=== PATIENT | female | born 1975 | race Caucasian/White ===

== ENCOUNTER → 2019-04-06 | Outpatient (CLI) | payer OTHER ==
[~2019-04-06] MED LIST: CARB1TAB22 PO; DIPH25CA61 PO; GABA300C10 PO; IBUP-1223 PO; METH750T2 PO; OMEP-110 PO
[2019-04-06 11:52] LABS: BASOPHILS # (AUTO) 0.02 x10^3/uL (0-0.1); BASOPHILS % (AUTO) 0 % (0-1); EOSINOPHILS # (AUTO) 0.07 x10^3/uL (0-0.4); EOSINOPHILS % (AUTO) 1 % (1-7); INTERNATIONAL NORMALIZED RATIO 0.96 (0.93-1.1); LYMPHOCYTES # (AUTO) 2.12 x10^3/uL (1-3.4); LYMPHOCYTES % (AUTO) 42 % (22-44); MD NO; MEAN CORPUSCULAR HEMOGLOBIN 30.6 pg (27.0-34.8); MEAN CORPUSCULAR HGB CONC 32.8 g/dL (32.4-35.8); MEAN CORPUSCULAR VOLUME 93.2 fL (80-100); MEAN PLATELET VOLUME 8.1 fL (7.4-10.4); MONOCYTES # (AUTO) 0.29 x10^3/uL (0.2-0.8); MONOCYTES % (AUTO) 6 % (2-9); NEUTROPHILS # (AUTO) 2.52 x10^3/uL (1.8-6.8); NEUTROPHILS % (AUTO) 50 % (42-75); PLATELET COUNT 276 x10^3/uL (130-400); PROTHROMBIN TIME 10.1 Seconds (9.6-11.5); RED BLOOD COUNT 4.76 x10^6/uL (3.82-5.3)
[2019-04-06 11:54] LABS: ANION GAP 5 mmol/L (5-15); CALCIUM 8.9 mg/dL (8.5-10.1); CHLORIDE 107 mmol/L (98-107)
[2019-04-06 12:02] LABS: CREATININE 0.62 mg/dL (0.55-1.02)
== END | disposition home or self-care (01) ==
LOC: STAR 10:49
PROVIDERS: ATTEND Neurological Surgery
DX: Z01.818 Encounter for other preprocedural examination (principal); M48.061 Spinal stenosis, lumbar region without neurogenic claudication; M47.26 Other spondylosis with radiculopathy, lumbar region
CPT/HCPCS: 36415; 71046; 72110; 80048; 84703; 85025; 85610; 85730; 93005

== ENCOUNTER 2019-04-14 10:00 | Inpatient (IN) | payer OTHER ==
[~2019-04-14] VITALS: Ht 167.6 cm; Wt 54.5 kg
[~2019-04-14 10:00] MED LIST changes: +BACITRACIN 50,000 UNIT ONE; +BUPIVACAINE/PF 0.5% ONE; +EPINEPHRINE 1 MG/ML, 1ML ONE; +THROMBIN 5,000 UNIT VIAL TP ONE
[2019-04-14] MEDS ORDERED: LACTATED RINGERS 1,000 ML IV SCH (11:38)
[2019-04-14 11:39] VITALS: BP 112/78
[2019-04-14] MEDS ORDERED: SUCCINYLCHOLINE 20 MG/ML, 10ML ONE (15:57)
[2019-04-14] MEDS ORDERED: MIDAZOLAM 1 MG/ML, 2ML ONE (15:59)
[2019-04-14] MEDS ORDERED: FENTANYL PF 250 MCG/5ML ONE (15:59)
[2019-04-14] MEDS ORDERED: MEPERIDINE/PF 25MG/0.5ML IVPush PRN (16:30)
[2019-04-14] MEDS ORDERED: FENTANYL PF 100 MCG/2ML IV PRN (16:30)
[2019-04-14] MEDS ORDERED: KETOROLAC 30 MG/1 ML IV PRN (16:30)
[2019-04-14] MEDS ORDERED: OXYcodone 5 MG/5 ML ORAL.SOL UDC PO PRN (16:30)
[2019-04-14] MEDS ORDERED: ONDANSETRON 2MG/ML, 2ML IVPush PRN (16:30)
[2019-04-14] MEDS ORDERED: hydrALAzine 20 MG/ML, 1ML IV PRN (16:30)
[2019-04-14] MEDS ORDERED: PROMETHAZINE 25 MG/ML, 1ML IV PRN (16:30)
[2019-04-14] MEDS ORDERED: ALBUTEROL SULFATE 2.5 MG/3 ML NPPB PRN (16:30)
[2019-04-14] MEDS ORDERED: HYDROmorphone 1 MG/ML, 1ML INJ IV PRN (16:30)
[2019-04-14] MEDS ORDERED: METOCLOPRAMIDE 5 MG/ML, 2ML IV PRN (16:30)
[2019-04-14] MEDS ORDERED: LABETALOL 5MG/ML, 20ML IV PRN (16:30)
[2019-04-14] MEDS ORDERED: PROPOFOL 10 MG/ML, 20ML ONE (17:10)
[2019-04-14] MEDS ORDERED: CEFAZOLIN 1,000 MG ONE (17:10)
[2019-04-14] MEDS ORDERED: ONDANSETRON 2MG/ML, 2ML ONE (17:10)
[2019-04-14] MEDS ORDERED: DEXAMETHASONE 4 MG/ML, 1ML ONE (17:10)
[2019-04-14 18:30] VITALS: BP 101/57
[2019-04-14] MEDS ORDERED: ACETAMINOPHEN 325 MG TABLET PO PRN (19:30)
[2019-04-14] MEDS ORDERED: MORPHINE SULFATE 4 MG/ML, 1ML IV PRN (19:30)
[2019-04-14] MEDS ORDERED: BISACODYL 10 MG SUPP PR PRN (19:30)
[2019-04-14] MEDS ORDERED: METHOCARBAMOL 750 MG TABLET PO PRN (19:30)
[2019-04-14] MEDS ORDERED: DIPHENHYDRAMINE 50 MG/ML, 1ML IM PRN (19:30)
[2019-04-14] MEDS ORDERED: ONDANSETRON 2MG/ML, 2ML IV PRN (19:30)
[2019-04-14] MEDS ORDERED: HYDROcodone/APAP 10/325 MG TABLET PO PRN (19:30)
[2019-04-14] MEDS ORDERED: DIPHENHYDRAMINE 25 MG CAPSULE PO PRN (19:30)
[2019-04-14] MEDS ORDERED: PROMETHAZINE 25 MG/ML, 1ML IM PRN (19:30)
[2019-04-14] MEDS ORDERED: ACETAMINOPHEN 650 MG SUPP PR PRN (19:30)
[2019-04-14] MEDS ORDERED: MAGNESIUM HYDROXIDE 8%, 30ML UDC PO PRN (19:30)
[2019-04-14 19:43] VITALS: BP 100/67
[2019-04-14] MEDS ORDERED: METHOCARBAMOL 1,000 MG in DEXTROSE 5% 100 ML IV ONE (20:00)
[2019-04-14] MEDS: GABAPENTIN 300 MG CAPSULE PO SCH (21:31)
[2019-04-14] MEDS: D5%-0.9% NACL+KCL 20MEQ 1,000 ML IV SCH (21:31)
[2019-04-15 00:10] VITALS: BP 92/54
[2019-04-15] MEDS: CEFAZOLIN PMX 2GM/50ML 50 ML IVPB SCH ×2 (00:30→07:51)
[2019-04-15] MEDS ORDERED: METHOCARBAMOL 750 MG in DEXTROSE 5% 100 ML IV SCH (04:00)
[2019-04-15] MEDS ORDERED: OMEPRAZOLE 20 MG CAPSULE.DR PO SCH (06:00)
[2019-04-15 07:30] VITALS: BP 104/57
[2019-04-15] MEDS: GABAPENTIN 300 MG CAPSULE PO SCH (07:51)
[2019-04-15] MEDS ORDERED: CARBIDOPA/LEVODOPA 25 MG/100 MG TABLET PO SCH (09:00)
[2019-04-15] MEDS ORDERED: SENNA/DOCUSATE TABLET PO SCH (09:00)
[2019-04-15] MEDS ORDERED: MAGNESIUM HYDROXIDE 8%, 30ML UDC PO ONE (10:00)
[2019-04-15] MEDS: D5%-0.9% NACL+KCL 20MEQ 1,000 ML IV SCH (10:00)
[2019-04-15] MEDS ORDERED: KETOROLAC 30 MG/1 ML IV ONE (10:00)
[2019-04-15] MEDS ORDERED: HYDR-36 PO (10:31)
[2019-04-17] MEDS ORDERED: METHOCARBAMOL 750 MG TABLET PO SCH (06:00)
== END 2019-04-15 11:00 | disposition home or self-care (01) | DRG 517 ==
LOC: ORIP 11:03 → 4NE 18:30 → DCLOUNGE 04-15 10:41
PROVIDERS: ADMIT Neurological Surgery; ATTEND Neurological Surgery
PROC: 01NB0ZZ Release Lumbar Nerve, Open Approach (ICD-10-PCS; principal; 2019-04-14 14:30)
DX: M54.16 Radiculopathy, lumbar region (principal); M48.062 Spinal stenosis, lumbar region with neurogenic claudication; M54.2 Cervicalgia
CPT/HCPCS: 72100; 76000; S0020; G0378; J0171; J0690; J1100; J1885; J2250; J2405; J2704; J3010; J0330; J2800; J3480